=== PATIENT | female | born 1965 | race Caucasian/White ===

== ENCOUNTER 2018-03-07 08:08 | Inpatient (IN) | payer OTHER ==
[2018-03-07] VITALS (9 sets, daily range): BP systolic 110–151; BP diastolic 45–80
[~2018-03-07] VITALS: Ht 157.5 cm; Wt 79.8 kg
[2018-03-07] MEDS ORDERED: SINGULAIR 10 MG10 M1 PO (08:13)
[2018-03-07] MEDS ORDERED: CLARITIN10 MG PO (08:13)
[2018-03-07] MEDS ORDERED: PROTONIX 20 MG20 M1 PO (08:13)
[2018-03-07] MEDS ORDERED: ASPIR 8181 MG PO (08:14)
[2018-03-07 08:26] LABS: ABSOLUTE BASOPHILS 0.1 thou/uL (0.0-0.2); ABSOLUTE EOSINOPHILS 0.4 thou/uL (0.0-0.7); ABSOLUTE LYMPHOCYTES 3.6 thou/uL (0.8-5.3); ABSOLUTE MONOCYTES 0.5 thou/uL (0.0-1.2); ABSOLUTE NEUTROPHILS 3.5 thou/uL (1.6-8.1); BASOPHILS 1.1 %; EOSINOPHILS 5.3 %; HEMATOCRIT 41.3 % (37.0-47.0); HEMOGLOBIN 13.9 gm/dL (12.0-15.0); LYMPHOCYTES 43.7 %; MCH 29.1 pg (26.0-34.0); MCHC 33.7 g/dL (28.0-37.0); MCV 86.2 fL (80.0-100.0); MONOCYTES 6.3 %; MPV 8.2 fl. (7.2-11.1); NUCLEATED RBCS 0 /100WBC; PLATELET COUNT* 319 thou/uL (150-400); POLYS 43.6 %; RBC 4.79 mil/uL (4.20-5.00); RDW-CV 13.2 % (10.5-14.5); WBC 8.1 thou/uL (4.0-11.0)
[2018-03-07 08:35] LABS: ANION GAP 8 mmol/L (7-16); BUN 20 mg/dL (7-18); CHLORIDE 106 mmol/L (98-107); CO2 26 mmol/L (21-32); CREATININE 0.9 mg/dL (0.6-1.3); GLUCOSE 110 mg/dL (70-99); POTASSIUM 3.9 mmol/L (3.5-5.1); SODIUM 140 mmol/L (136-145)
[2018-03-07 08:41] LABS: ALBUMIN 3.9 g/dL (3.4-5.0); ALKALINE PHOSPHATASE 51 U/L (46-116); LIPASE 143 U/L (73-393); MAGNESIUM 1.9 mg/dL (1.8-2.4); SGOT 11 U/L (15-37); SGPT 16 U/L (30-65); TOTAL BILIRUBIN 0.3 mg/dL (<0.1-1.0); TOTAL PROTEIN 7.2 g/dL (6.4-8.2); TROPONIN-I LEVEL <0.06 ng/mL (<0.06)
[2018-03-07 10:06] LABS: APTT 24.4 Seconds (25.0-31.3); PROTIME 9.9 Seconds (9.20-11.50)
[2018-03-07] MEDS ORDERED: amberen PO (11:01)
--- NOTE | 2018-03-08 17:04 | EKG ---
[place] [address] ELECTROCARDIOGRAM REPORT Name: PHILLY WARREN Room: [address]#: [id number] Admission: 03/07/18 Attend Phys: Adithya Noel Discharge: 03/07/18 Date of : 61 Report #: [id number] THIS REPORT FOR: //name// [facility] ED Test Date: 2018-03-07 Test Time: 08:12:59 Pat Name: PHILLY WARREN Department: Room: Gender: F Manager [employer]: Jama ALMEIDA : 1965 Requested By: Andrea Vaughn Order Number: [id number] MD: Rober Saba Measurements Intervals [place] Rate: 91 P: 73 [place]: 115 QRS: 46 QRSD: 92 T: -20 QT: 347 QTc: 427 Interpretive Statements Sinus rhythm Borderline short [place] interval Borderline repolarization abnormality Compared to ECG 01/17/2013 16:11:49 No significant changes Electronically Signed On 03-08-2018 17:04:06 CDT by Rober Saba [email or web address] <ELECTRONICALLY SIGNED> By: Rober Saba MD, [facility] 03/08/18 1704 1 08 Rober Saba MD, [facility] /EPI
--- NOTE | 2018-03-09 10:22 | CARD ---
[facility] [address] [place] [address] CARDIAC CATH REPORT Name: PHILLY WARREN Room: [address]#: [id number] Admission: 03/07/18 Attend Phys: Adithya Noel Discharge: 03/07/18 Date of : 61 Report #: [id number] THIS REPORT FOR: //name// APPROVED REPORT Study performed: 03/07/2018 14:20:20 Patient Details The patient is a 52 year-old female Event Personnel Oscar Zarate Sand Digger, Sugey Dejesus RN Protective Signal Installer, Rocky Stevens (R) Monitor, PerlaMarichuy stone RTR Scrub Procedures Performed Left Heart Cath w/or w/o Coronaries Indication Chest pain Risk Factors Family History Procedure Narrative The patient was brought electively to the Cardiac Catheterization Laboratory and was prepped and draped in a sterile manner. The right femoral was infiltrated with 1% Lidocaine subcutaneous anesthesia. A Rindge 6 FR sheath was inserted into the Right Femoral Artery. Coronary angiography was performed using coronary diagnostic catheters. The right coronary system was accessed and visualized with a Diagnostic JR4 catheter. The left coronary system was accessed and visualized with a Diagnostic JL4 catheter. The left ventricle was accessed and visualized with a Diagnostic Angled Pig catheter. Left ventricular/Aortic Valve gradient assessed . Left ventriculogram was performed in HURST projection. Pre-demployment femoral angiogram was performed . Closure device was deployed with a Fr MynxGrip 6/7F. The patient tolerated the procedure well and there were no complications associated with the procedure. Intraoperative Conscious Sedation Sedation start time: 14:45 Case end Time: 15:01 Fentanyl 50 mcg Versed [address] [place] [id number] CARDIAC CATH REPORT Name: PHILLY WARREN Room: [address]#: [id number] Admission: 03/07/18 Attend Phys: Adithya Noel Discharge: 03/07/18 Date of : 61 Report #: [id number] Fluoro Time: 2.1 minutes Dose: DAP 94513 cGycm2 351 351 mGy Contrast Type and Amount: Visipaque 120 ml Coronary Angiography The patient's coronary anatomy is right dominant. Diagnostic Cath Left Main 0% narrowing LAD 0% narrowing Circumflex Nondominant vessel with 0% narrowing Right Coronary Dominant vessel with 0% narrowing Left Ventriculography The left ventricle is normal in size with normal contractility. The left ventricular ejection fraction is estimated to be 65%. Left ventricular wall motion abnormalities are not present. There is no mitral insufficiency. Hemodynamics The aortic pressure is 113/53 mmHg with a mean of 71 mmHg. The left ventricular pressure is 105/0 mmHg with a mean of mmHg. The left ventricular end diastolic pressure is 8 mmHg. Conclusion #1 normal coronary arteries #2 normal left ventricular systolic function, estimated ejection fraction being 65% #3 normal left-sided hemodynamics study Recommendations Cardiac Risk Reduction Program Diagnostic Cath Approved by: Oscar Zarate MD Date/Time: 03/09/18 at 1020 hrs. <ELECTRONICALLY SIGNED> By: Oscar Zarate MD, [facility] 03/09/18 1021 1021 1021Oscar Zarate MD, FAC /INF
== END 2018-03-07 18:40 | disposition home or self-care (01) | DRG 287 ==
LOC: M.ERS 08:08 → M.ICU 08:53 → M.TBA-ER 08:53 → M.ICU 10:35
PROVIDERS: Emergency Medicine Emergency Medical Services; ADMIT Internal Medicine
PROC: 4A023N8 Measurement of Cardiac Sampling and Pressure, Bilateral, Percutaneous Approach (ICD-10-PCS; principal; 2018-03-07)
PROC: B2111ZZ Fluoroscopy of Multiple Coronary Arteries using Low Osmolar Contrast (ICD-10-PCS; principal; 2018-03-07)
DX: R07.9 Chest pain, unspecified (principal); E78.5 Hyperlipidemia, unspecified; Z88.2 Allergy status to sulfonamides; Z88.8 Allergy status to other drugs, medicaments and biological substances; Z82.49 Family history of ischemic heart disease and other diseases of the circulatory system; Z79.899 Other long term (current) drug therapy

== ENCOUNTER → 2018-03-29 | Outpatient (CLI) | payer OTHER ==
[~2018-03-29] MED LIST: ASPIR 8181 MG PO; CLARITIN10 MG PO; PROTONIX 20 MG20 M1 PO; SINGULAIR 10 MG10 M1 PO; amberen PO
== END ==
LOC: M.MRI 13:03
DX: M54.6 Pain in thoracic spine (principal); R07.81 Pleurodynia

== ENCOUNTER → 2018-04-30 | Outpatient (CLI) | payer OTHER | LOC: M.RAD 14:11 | DX: Z12.31 Encounter for screening mammogram for malignant neoplasm of breast (principal); R05 Cough ==

== ENCOUNTER → 2018-08-28 | Outpatient (CLI) | payer OTHER | LOC: M.ULTRA 07:25 | DX: R10.12 Left upper quadrant pain (principal) ==

== ENCOUNTER → 2019-06-09 | Outpatient (CLI) | payer OTHER ==
[2019-06-09 08:50] LABS: ABSOLUTE BASOPHILS 0.1 thou/uL (0.0-0.2); ABSOLUTE EOSINOPHILS 0.4 thou/uL (0.0-0.7); ABSOLUTE LYMPHOCYTES 3.1 thou/uL (0.8-5.3); ABSOLUTE MONOCYTES 0.4 thou/uL (0.0-1.2); ABSOLUTE NEUTROPHILS 3.9 thou/uL (1.6-8.1); BASOPHILS 0.9 %; EOSINOPHILS 5.2 %; HEMATOCRIT 42.5 % (37.0-47.0); HEMOGLOBIN 14.1 gm/dL (12.0-15.0); LYMPHOCYTES 38.9 %; MCH 29.3 pg (26.0-34.0); MCHC 33.2 g/dL (28.0-37.0); MCV 88.2 fL (80.0-100.0); MONOCYTES 5.6 %; MPV 7.5 fl. (7.2-11.1); NUCLEATED RBCS 0 /100WBC; PLATELET COUNT* 332 thou/uL (150-400); POLYS 49.4 %; RBC 4.81 mil/uL (4.20-5.00); RDW-CV 13.6 % (10.5-14.5); WBC 7.9 thou/uL (4.0-11.0)
[2019-06-09 09:05] LABS: ALBUMIN 3.9 g/dL (3.4-5.0); ALKALINE PHOSPHATASE 55 U/L (46-116); ANION GAP 9 mmol/L (7-16); BUN 20 mg/dL (7-18); CALCIUM 9.3 mg/dL (8.5-10.1); CHLORIDE 103 mmol/L (98-107); CHOLESTEROL 235 mg/dL (<200); CO2 28 mmol/L (21-32); CREATININE 0.8 mg/dL (0.6-1.3); GLUCOSE 108 mg/dL (70-99); HDL CHOLESTEROL 65 mg/dL (>40); LDL CHOLESTEROL 141 mg/dL (<100); POTASSIUM 4.3 mmol/L (3.5-5.1); SGOT 14 U/L (15-37); SODIUM 140 mmol/L (136-145); TC:HDL 3.6 Ratio (Not establshd); TOTAL BILIRUBIN 0.5 mg/dL (<0.1-1.0); TOTAL PROTEIN 7.3 g/dL (6.4-8.2); TRIGLYCERIDE 148 mg/dL (<150); VLDL 30 mg/dL (<40)
[2019-06-09 09:06] LABS: SERUM ASSESSMENT Clear
[2019-06-09 09:34] LABS: SGPT 24 U/L (30-65)
== END ==
LOC: M.ULTRA 07:30
PROVIDERS: Family Medicine
DX: Z12.31 Encounter for screening mammogram for malignant neoplasm of breast (principal); M47.898 Other spondylosis, sacral and sacrococcygeal region; K80.20 Calculus of gallbladder without cholecystitis without obstruction; K80.80 Other cholelithiasis without obstruction; Z78.0 Asymptomatic menopausal state

== ENCOUNTER 2019-06-17 15:23 | Emergency (ER) | payer OTHER ==
[~2019-06-17] VITALS: Ht 154.9 cm; Wt 79.4 kg
[2019-06-17] MEDS ORDERED: ESTRADIOL 1 MG T1 M1 PO (15:48)
[2019-06-17] MEDS ORDERED: MULTIVITAMINS1 EAC7 PO (15:48)
[2019-06-17] MEDS ORDERED: MAGOX 400400 MG PO (15:48)
[2019-06-17] MEDS ORDERED: CETIRIZINE HCL5 MG PO (15:48)
[2019-06-17] MEDS ORDERED: IBUPROFEN 400400 M2 PO (15:48)
[2019-06-17] MEDS ORDERED: IMITREX100 MG PO (15:49)
[2019-06-17] MEDS ORDERED: ONDANSETRON HCL4 M2 PO (17:09)
[2019-06-17] MEDS ORDERED: IBUPROFEN 800800 M1 PO (17:09)
[2019-06-17] MEDS ORDERED: ACETAMINOPHEN-1 EAC1 PO (17:09)
[2019-06-17 17:17] VITALS: BP 136/76
== END 2019-06-17 17:18 | disposition home or self-care (01) ==
LOC: M.ERS 15:23
DX: S62.600A Fracture of unspecified phalanx of right index finger, initial encounter for closed fracture (principal); Z98.890 Other specified postprocedural states; M43.22 Fusion of spine, cervical region; Z88.2 Allergy status to sulfonamides; Z88.8 Allergy status to other drugs, medicaments and biological substances; X58.XXXA Exposure to other specified factors, initial encounter; Y92.89 Other specified places as the place of occurrence of the external cause; Y93.89 Activity, other specified; Y99.8 Other external cause status